=== PATIENT | female | born 1990 | race Caucasian/White ===

== ENCOUNTER → 2019-10-13 | Outpatient (CLI) | payer OTHER | LOC: LAB 08:52 | DX: B00.1 Herpesviral vesicular dermatitis (principal); Z20.828 Contact with and (suspected) exposure to other viral communicable diseases ==

== ENCOUNTER → 2020-10-29 | Outpatient (CLI) | payer BC | LOC: RAD 09:47 | DX: M79.644 Pain in right finger(s) (principal) ==

== ENCOUNTER → 2020-12-04 | Outpatient (CLI) | payer BC | LOC: AMSURD 09:30 | DX: R07.89 Other chest pain (principal) ==

== ENCOUNTER → 2020-12-21 | Outpatient (CLI) | payer BC ==
[2020-12-21 16:37] LABS: BASO # 0.02 (0.02-0.10); EOS # 0.13 (0.04-0.40); EOS % 1.5 % (1.0-5.0); HEMATOCRIT 38.7 % (37.0-47.0); HEMOGLOBIN 12.5 g/dL (12.5-16.0); MEAN CELL VOLUME 94 fl (78-100); MEAN CORPUSCULAR HEMOGLOBIN 31 pg (27-31); MEAN CORPUSCULAR HGB CONC 32 g/dL (33-37); MEAN PLATELET VOLUME 9.9 fl (7.4-10.4); MONO # 0.86 (0.20-0.80); NEU # 5.84 (1.40-6.50); PLATELET COUNT 280 K/mm3 (130-400); RED CELL DISTRIBUTION WIDTH 12.1 % (11.5-14.5)
[2020-12-21 16:41] LABS: ALBUMIN 4.2 g/dL (3.5-5.0)
[2020-12-21 16:42] LABS: POTASSIUM 3.7 mmol/L (3.5-5.1)
[2020-12-21 16:43] LABS: CALCIUM 9.5 mg/dL (8.3-10.5)
[2020-12-21 16:44] LABS: TOTAL PROTEIN 7.5 g/dL (6.4-8.3)
[2020-12-21 16:46] LABS: TOTAL BILIRUBIN 0.2 mg/dL (0.2-1.2)
== END ==
LOC: LAB 16:13
PROVIDERS: Family Medicine
DX: Z00.00 Encounter for general adult medical examination without abnormal findings (principal)

== ENCOUNTER → 2020-12-28 | Outpatient (CLI) | payer BC | LOC: AMSURD 09:00 | DX: R00.2 Palpitations (principal) ==

== ENCOUNTER → 2023-02-05 | Outpatient (CLI) | payer BC | LOC: LAB 12:39 | DX: Z13.1 Encounter for screening for diabetes mellitus (principal); E55.9 Vitamin D deficiency, unspecified ==

== ENCOUNTER → 2024-01-21 | Outpatient (CLI) | payer BC ==
[2024-01-21 12:18] LABS: BASO # 0.01 K/mm3 (0.02-0.10); EOS # 0.06 K/mm3 (0.04-0.40); EOS % 1.2 % (1.0-5.0); HEMATOCRIT 37.6 % (37.0-47.0); HEMOGLOBIN 12.4 g/dL (12.5-16.0); LYMPH# 1.52 K/mm3 (1.50-4.00); MEAN CELL VOLUME 95 fl (78-100); MEAN CORPUSCULAR HEMOGLOBIN 31 pg (27-31); MEAN CORPUSCULAR HGB CONC 33 g/dL (33-37); MEAN PLATELET VOLUME 9.5 fl (7.4-10.4); MONO # 0.36 K/mm3 (0.20-0.80); NEU # 2.93 K/mm3 (1.40-6.50); PLATELET COUNT 240 K/mm3 (130-400); RED BLOOD COUNT 3.95 M/mm3 (4.10-5.30); WHITE BLOOD COUNT 4.9 K/mm3 (4.8-10.8)
[2024-01-21 12:30] LABS: ALBUMIN 4.4 g/dL (3.5-5.0)
[2024-01-21 12:31] LABS: CALCIUM 9.4 mg/dL (8.3-10.5)
[2024-01-21 12:33] LABS: TOTAL PROTEIN 7.3 g/dL (6.4-8.3)
[2024-01-21 12:34] LABS: TOTAL BILIRUBIN 0.3 mg/dL (0.2-1.2)
== END ==
LOC: LAB 12:04
PROVIDERS: Nurse Practitioner
DX: D50.9 Iron deficiency anemia, unspecified (principal); E03.9 Hypothyroidism, unspecified

== ENCOUNTER → 2024-03-15 | Outpatient (CLI) | payer BC | LOC: RAD 07:24 | DX: G43.909 Migraine, unspecified, not intractable, without status migrainosus (principal) ==